=== PATIENT | female | born 1940 | race Caucasian/White ===

== ENCOUNTER 2016-08-20 06:47 | Day surgery (SDC) | payer MEDICARE ==
[~2016-08-20] VITALS: Ht 162.6 cm; Wt 69.8 kg
[2016-08-20] VITALS (10 sets, daily range): BP systolic 117–136; BP diastolic 56–74; PULSE 75–107; RESP 7–18; O2SAT 98–99
--- NOTE | 2016-08-20 06:46 | PCM.HPANE ---
Patient Data Surgeon Admitting Provider: Attending Provider:Joshua Dee MD Primary Care Physician:Mami Yeboah PA-C Other Provider:Connie Muniz Anesthesia Reason for Visit Left Knee Meniscus Tear Ht/WT & BMI Height (Feet): 5 Height (Inches): 4 Weight (Kilograms): 69.85 Body Mass Index 26.00 Allergies Coded Allergies: Penicillins (Verified Allergy, Unknown, hives, 08/16/16) Sulfa (Sulfonamide Antibiotics) (Verified Allergy, Unknown, swelling, 08/16) Past Anesthesia History Anesthesia History: Denies:: Abnormal Airway, Anesthesia Reactions (anes for toenail removal "felt weird"), Difficult Intubation, Fam Anesthesia Reaction Diabetes History Hx Diabetes?: Yes (Hgb A1C last tested 6.5- around 3 mos ago) Type of Diabetes: Type II Glycemic Control: Oral Medication MRSA MRSA: No Medications Blood Thinner: Aspirin Hypertension Medication: Yes Home Meds Incl Beta Kristin: No Reported Medications Aspirin 81 Mg [id number] Mg PO DAILY Ref 0 08/16/16 Loperamide HCl (Imodium A-D)2 Mg Capsule2 Mg PO PRN For Diarrhea or Loose Stool 08/16/16 Metformin 500 Mg [id number] Mg PO BID Ref 0 08/16/16 Lisinopril 10 Mg Eyalpa83 Mg PO DAILY 30 Days Ref 0 08/16/16 Hydrochlorothiazide 25 Mg [id number] Mg PO DAILY 30 Days Ref 0 08/16/16 Fluoxetine 10 Mg [id number] Mg PO DAILY Ref 0 08/16/16 History HEENT History: Positive for:: Hearing Problem (cant wear aides, make ears itch ) Denies:: Abnormal Airway Cataracts Difficult Intubation Dysphagia Glaucoma Sinus Problem TMJ Hx of Heart Problems?: Yes Cardiovascular History: Positive for:: Hypertension Denies:: AICD Heart Murmur Irregular Heartbeat Pacemaker Peripheral Vascular Hx of Respiratory Problem?: No Respiratory History: Denies:: Asthma COPD Emphysema Oxygen Administration Pneumonia Tuberculosis Use of C-PAP Machine Use of Inhalers / NEBS Hx Neurologic Problems?: No Neurological History: Denies:: Alzheimer's Disease Dementia Dizziness Headaches Multiple Sclerosis Parkinson's Disease Seizures TIA Hx of GI Problems?: Yes Gastrointestinal History: Denies:: Gall Bladder Disease Gastroesphageal Reflux Gastrointestinal Bleeding Heartburn Hepatitis Hiatal Hernia Liver Disease Other GI Pertinent History: hx IBS- takes lomotil as needed, maybe once monthly Hx of Problems?: No Genitourinary History: Denies:: Kidney Stones Urinary Tract Infection Female Hx: Denies:: Currently (hysterectomy) Problems with Breasts? Skin History: Denies:: History Skin Disorders? Pressure Ulcers Hx Musculoskeletal Problems?: Yes Musculoskeletal History: Positive for:: Musculoskeletal Trauma (left knee current admission problem) Osteoarthritis Denies:: Back Injury Fibromyalgia Joint Replacement Myasthenia Gravis Systemic Lupus Hx of Psycho/Social Problems?: Yes Psycho Social History: Positive for:: Hx Depression (on antidepressant ) Hx Surgeries?: Yes (hysterectomy, MOHs, vein stripping- bilateral, ) Hx Any Other Health Problems?: Yes Other History: Positive for:: Cancer (SCC left hand ) Denies:: Thyroid Disease History Blood Transfusions: Positive for:: Accept Blood Products? Denies:: Blood Transfusions Hx Diabetes: Yes (Hgb A1C last tested 6.5- around 3 mos ago) Hx Alcohol Use: NoHx Substance Use: NoHave You Smoked inLast 12 mo: No Stop/Bang S-Snoring: Do You Snore Loudly: No T-Tired: feel tired, fatigued: No O-Obsered: Observed not breath: No P-Blood Pressure: treated: Yes B- Body Mass Index > 35 kg/m2: No A- Age over 50: Yes N- Neck Large Circumference: No G- Gender Male: No CHRISTIAN Total Score: 2 CHRISTIAN Risk Assessment: Low Risk, <3 Yes Risk Assessment Category Category 1A: Patient has history of documented sleep apnea, and HAS NOT received any narcotic, sedative or anesthesia administration during this stay. Category 1B: Patient has history of documented sleep apnea, and HAS received any narcotic , sedative or anesthesia administration during this stay Category 2: Patient has SUSPECTED Obstructive Sleep Apnea, and HAS received any narcotic , sedative or anesthesia administration during this stay. Category 3: Patient has SUSPECTED Obstructive Sleep Apnea and HAS NOT received narcotic, sedative or anesthesia administration during this stay. Category 4: Outpatient in Procedural Areas with known sleep apnea or who screen positive for High Risk via the STOP/BANG questionnaire. Exam Exam General Appearance: Alert, Oriented X3, Cooperative, No Acute Distress HEENT/AIRWAY: MP 2 Lungs: Clear to Auscultation, Normal Air Movement Heart: Exam Unremarkable, Regular Rate/Rhythm, No Murmurs/Rubs/Gallops Plan Impression Patient chart reviewed, patient interviewed and anesthestic plan with risks, benefits, and alternatives discussed, and informed consent obtained. ASA Physical Status: ASA2 Mod Systemic Disease Anesthetic Plan: GA Bene/Risks/Altern/Consents: Yes HP Complete Prior to Induction: Yes Kelly Ponce MD Aug 20, 2016 06:46
[~2016-08-20 06:47] MED LIST: ASPI-973 PO; Clindamycin 900 mg/50 mL D5W IV ONE; FLUO10TA PO; HYDR25TA4 PO; LISI10TA PO; LOPE-147 PO; Lactated Ringer's 1,000 ML IV ONE; METF500T4 PO
[2016-08-20] MEDS ORDERED: Propofol 10,000 mCg/mL 20 mL Inj ONE (06:48)
[2016-08-20] MEDS ORDERED: Ondansetron 2 mg/mL 2 mL Inj ONE (06:48)
[2016-08-20] MEDS ORDERED: Dexamethasone 4 mg/mL Inj ONE (06:48)
[2016-08-20] MEDS ORDERED: fentaNYL-PF 50 mCg/mL 2 mL Inj ONE (06:48)
[2016-08-20] MEDS ORDERED: Lactated Ringer's 1,000 ML IV ONE (07:41)
[2016-08-20] MEDS ORDERED: Lactated Ringer's 500 ML IV PRN (09:32)
[2016-08-20] MEDS ORDERED: Lactated Ringer's 1,000 ML IV SCH (09:32)
[2016-08-20] MEDS ORDERED: Atropine 0.4 mg/mL Inj IVPUSH PRN (09:35)
[2016-08-20] MEDS ORDERED: fentaNYL-PF 50 mCg/mL 2 mL Inj IVPUSH PRN (09:35)
[2016-08-20] MEDS ORDERED: MetoCLOpramide 5 mg/mL 2 mL Inj IVPUSH PRN (09:35)
[2016-08-20] MEDS ORDERED: EPHEDrine Sulfate 50 mg/mL Inj IVPUSH PRN (09:35)
[2016-08-20] MEDS ORDERED: HYDROmorphone 1 mg/mL Inj IVPUSH PRN (09:35)
[2016-08-20] MEDS ORDERED: Dexamethasone 4 mg/mL Inj IVPUSH PRN (09:35)
[2016-08-20] MEDS ORDERED: Labetalol 5 mg/mL 4 mL Inj IV PRN (09:35)
[2016-08-20] MEDS ORDERED: hydrALAZINE 20 mg/mL Inj IVPUSH PRN (09:35)
[2016-08-20] MEDS ORDERED: Ondansetron 2 mg/mL 2 mL Inj IVPUSH PRN (09:35)
[2016-08-20] MEDS ORDERED: Phenylephrine 10,000 mCg/mL Inj IVPUSH PRN (09:35)
[2016-08-20] MEDS ORDERED: Bupivacaine-MPF 0.25%/EPI 30 mL Inj INJ ONE (09:40)
[2016-08-20] MEDS ORDERED: Dexamethasone 4 mg/mL Inj INTRARTICU ONE (09:40)
--- NOTE | 2016-08-20 10:31 | PCM.ANEP1 ---
Post Anesthesia Phase 1 PACU Phase 1 Assessment Vital Signs Vital Signs Date Time Temp Pulse Resp B/P Pulse Ox O2 Delivery O2 Flow Rate FiO2 08/20/16 10:25 92 11 120/62 99 Room Air 08/20/16 10:20 100 10 124/58 98 Room Air 08/20/16 10:15 101 11 117/64 99 Room Air 08/20/16 10:10 36.4 103 8 119/63 99 Simple Mask 4 08/20/16 10:05 107 8 135/74 99 Simple Mask 4 08/20/16 10:02 36.6 106 7 136/68 99 Simple Mask 4 08/20/16 07:30 36.4 75 17 127/69 98 Room Air Anesthetic Administered: GA Level of Alertness: Awake, talking SHEPHERD's with Equal Strength: Yes Pain: No Nausea or Vomiting: No Oxygen Delivery: Simple Mask Lungs: Clear to Auscultation, Normal Air Movement Kelly Ponce MD Aug 20, 2016 10:31
--- NOTE | 2016-08-20 12:35 | PCM.ANEP2 ---
Post Anesthesia Evaluation ASA/CMS Post Anesthesia VS in Patient's Normal Range?: Yes Resp Stable; Airway Patent?: Yes CV Function & Hydration Stable: Yes Mental Status Recovered?: Yes Pain control Satisfactory?: Yes N/V Control Satisfactory?: Yes Kelly Ponce MD Aug 20, 2016 12:35
--- NOTE | 2016-08-20 22:36 | OP ---
[address] [address] OPERATIVE REPORT PATIENT: AUGUSTO BOO : 1940 MR#: [id number] ADMIT: 08/20/2016 JOB ID: [id number] DATE OF SURGERY: 08/20/2016 PREOPERATIVE DIAGNOSIS(ES): Lateral meniscal tear with osteoarthritis in lateral compartment. POSTOPERATIVE DIAGNOSIS(ES): Lateral meniscal tear with osteoarthritis in lateral compartment. PROCEDURE: Lateral meniscectomy, left knee. SURGEON: Joshua Dee MD. INDICATIONS: This woman has moderate degenerative changes of her knee. She understands that she will likely require a knee arthroplasty, however, she does not have daily pain. She describes intermittent significant locking episodes consistent with lateral meniscal tear. She requests for, and wishes to proceed with, a lateral meniscectomy, understanding that this will not resolve symptoms related to osteoarthritis. FINDINGS OF SURGERY: Revealed a normal medial compartment and a mild chondromalacia of the patellofemoral joint, making her a good candidate for a partial lateral compartment knee arthroplasty in the future. ACL was intact. Lateral compartment revealed moderate degenerative changes of the articular surfaces with a significant diffuse tear of the lateral meniscus with two large flaps of lateral meniscal tissue. Following this diagnostic arthroscopy, attention was turned to the lateral compartment where partial lateral meniscectomy was performed removing all unstable tissue. Meniscus was taken back to leaving only stable intact meniscal tissue. Wounds were irrigated with sterile irrigant. The knee was fully lavaged and portals were closed with nylon suture. A sterile dressing was applied. She was returned to the recovery room in stable condition. She tolerated the procedure well. There were no complications.
== END 2016-08-20 23:59 | disposition home or self-care (01) ==
LOC: SAS 06:47
PROVIDERS: ATTEND Orthopaedic Surgery
DX: M23.201 Derangement of unspecified lateral meniscus due to old tear or injury, left knee (principal); M17.12 Unilateral primary osteoarthritis, left knee; E11.9 Type 2 diabetes mellitus without complications; Z79.84 Long term (current) use of oral hypoglycemic drugs